=== PATIENT | female | born 1965 | race Caucasian/White ===

== ENCOUNTER 2018-06-10 07:19 | Inpatient (IN) | payer OTHER ==
--- NOTE | 2018-06-10 07:34 | PDOC ---
History of Present Illness - General History Source: Patient Exam Limitations: No Limitations, Language Barrier - History of Present Illness Initial Comments: 52 yo F w no reported pmh presents to the ER after she began experiencing epigastric abdominal pain this morning at 2 am. She states she was awoken from sleep secondary to the pain and it has worsened since it began. She rates the pain as 8/9 out of 10 and says it feels like there is a belt squeezing her upper abdomen. The pain does not radiate to the back, chest, or lower abdomen and is not associated with nausea, vomiting, diarrhea or fevers. She had a normal bowel movement yesterday. Last night she ate a rice dish for dinner. Other family members ate the same dish but are not experiencing the symptoms like her. PCP: Kai Lopez PSH: None reported Allergies: NKA, NKDA Social Hx: Denies smoking, drinks on occasion, denies other drugs. <Colt Fernandez - Last Filed: 06/10/18 10:57> <Jenna Deal - Last Filed: 06/10/18 11:01> - General Chief Complaint: Pain, Acute Stated Complaint: ABDOMINAL PAIN Time Seen by Provider: 06/10/18 07:34 Past History - Past Medical History COPD: No HTN: No Lung CA: No - Surgical History Cholecystectomy: No - Immunization History Immunization Up to Date: No - Suicide/Smoking/Psychosocial Hx Smoking History: Never smoked Have you smoked in the past 12 months: No Information on smoking cessation initiated: No Hx Alcohol Use: No Drug/Substance Use Hx: No <Colt Fernandez - Last Filed: 06/10/18 10:57> <Jenna Deal - Last Filed: 06/10/18 11:01> - Past Medical History Allergies/Adverse Reactions: Allergies Allergy/AdvReac Type Severity Reaction Status Date / Time No Known Allergies Allergy Verified 06/10/18 08:08 Home Medications: Ambulatory Orders Ibuprofen [Advil -] 400 mg PO TID PRN 06/10/18 Review of Systems - Review of Systems Able to Perform ROS?: Yes Constitutional: Yes: Loss of Appetite. No: Chills, Fever, Malaise, Weakness HEENTM: No: Blurred Vision, Nose Congestion, Throat Pain Respiratory: No: Cough, Orthopnea, Shortness of Breath Cardiac (ROS): No: Chest Pain, Edema, Irregular Heart Rate, Lightheadedness, Palpitations, Syncope, Chest Tightness ABD/GI: Yes: Nausea, Poor Appetite, Poor Fluid Intake, Indigestion, Abdominal cramping. No: Abdominal Distended, Abd. Pain w/ defecation, Blood Streaked Bowels, Constipated, Diarrhea, Difficulty Swallowing, Rectal Bleeding, Vomiting : No: Burning, Dysuria, Discharge, Frequency, Flank Pain Musculoskeletal: No: Back Pain, Joint Pain, Muscle Pain Integumentary: No: Bruising, Change in Color, Dryness, Erythema, Flushing, Lesions, Pallor, Pruritus, Rash, Sweating Neurological: No: Headache, Numbness, Paresthesia, Tingling, Tremors, Weakness, Ataxia, Dizziness Psychiatric: Yes: Sleep Pattern Change, Change in Appetite. No: Depression Endocrine: No: Excessive Sweating, Flushing, Intolerance to Cold, Intolerance to Heat, Increased Hunger, Increased Thirst Hematologic/Lymphatic: No: Anemia, Blood Clots <Colt Fernandez - Last Filed: 06/10/18 10:57> *Physical Exam - Vital Signs Last Vital Signs Temp Pulse Resp BP Pulse Ox 98.4 F 58 L 16 158/88 100 06/10/18 07:22 06/10/18 07:22 06/10/18 07:22 06/10/18 07:22 06/10/18 07:22 - Physical Exam General Appearance: Yes: Nourished, Appropriately Dressed, Apparent Distress, Moderate Distress, Obese. No: Disheveled HEENT: positive: EOMI, CHESTER, Normal ENT Inspection, Normal Voice, Pharynx Normal. negative: Pale Conjunctivae Neck: positive: Trachea midline, Supple. negative: Decreased range of motion, Lymphadenopathy (R), Lymphadenopathy (L) Respiratory/Chest: positive: Lungs Clear, Normal Breath Sounds. negative: Respiratory Distress, Accessory Muscle Use Cardiovascular: positive: Regular Rhythm, S1, S2, Bradycardia. negative: Edema , JVD, Murmur, Tachycardia, Irregularly Irregular Gastrointestinal/Abdominal: positive: Normal Bowel Sounds, Tender (in the epigastric region), Soft. negative: Distended, Guarding, Rebound, Hernia Rectal Exam: positive: deferred Lymphatic: negative: Adenopathy Musculoskeletal: positive: Normal Inspection. negative: CVA Tenderness Extremity: positive: Normal Capillary Refill, Normal Inspection, Normal Range of Motion. 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 NML intact, Fully Oriented, Alert, Normal Response, Motor Strength 5/5 <Colt Fernandez - Last Filed: 06/10/18 10:57> - Vital Signs Last Vital Signs Temp Pulse Resp BP Pulse Ox 98.4 F 58 L 16 158/88 100 06/10/18 07:22 06/10/18 07:22 06/10/18 07:22 06/10/18 07:22 06/10/18 07:22 <Jenna Deal - Last Filed: 06/10/18 11:01> ED Treatment Course - LABORATORY CBC & Chemistry Diagram: 06/10/18 08:02 06/10/18 08:02 <Colt Fernandez - Last Filed: 06/10/18 10:57> - LABORATORY CBC & Chemistry Diagram: 06/10/18 08:02 06/10/18 08:02 - ADDITIONAL ORDERS Additional order review: Laboratory Results 06/10/18 06/10/18 08:02 08:02 Sodium 140 Potassium 3.6 Chloride 106 Carbon Dioxide 24 Anion Gap 11 BUN 11 Creatinine 0.7 Creat Clearance w eGFR 88.22 Random Glucose 164 H Calcium 9.1 Total Bilirubin 0.6 AST 42 H ALT 89 H Alkaline Phosphatase 133 H Troponin I < 0.02 Total Protein 8.0 Albumin 4.1 Lipase 144 06/10/18 08:02 RBC 5.15 MCV 89.7 MCHC 34.0 RDW 14.5 MPV 9.7 Neutrophils % 82.8 Lymphocytes % 13.1 Monocytes % 2.8 L Eosinophils % 0.6 Basophils % 0.7 - RADIOLOGY Radiology Studies Ordered: Category Date Time Status CHEST X-RAY PORTABLE* [RAD] Stat Radiology 06/10/18 11:00 Ordered - Medications Given in the ED: ED Medications Discontinued Medications Generic Name Dose Route Start Last Admin Trade Name Freq PRN Reason Stop Dose Admin Acetaminophen 1,000 mg 06/10/18 07:41 06/10/18 08:30 Ofirmev Injection - IVPB 06/10/18 07:42 1,000 mg ONCE ONE Administration Al Hydroxide/Mg Hydroxide 30 ml 06/10/18 07:40 06/10/18 08:31 Mylanta Suspension - PO 06/10/18 07:41 30 ml ONCE ONE Administration Famotidine/Sodium Chloride 20 mg in 50 mls @ 100 mls/hr 06/10/18 07:39 09:29 Pepcid 20 Mg Premixed Ivpb - IVPB 06/10/18 08:08 100 mls/hr ONCE ONE Administration Sodium Chloride 1,000 mls @ 1,000 mls/hr 06/10/18 07:39 06/10/18 08:32 Normal Saline - IV 06/10/18 08:38 1,000 mls/hr ASDIR STA Administration Ceftriaxone Sodium 1,000 mg/ 50 mls @ 100 mls/hr 06/10/18 10:23 06/10/18 10: 47 Dextrose IVPB 06/10/18 10:52 100 mls/hr ONCE ONE Administration Morphine Sulfate 4 mg 06/10/18 07:58 06/10/18 08:19 Morphine Injection - IVPUSH 06/10/18 07:59 4 mg ONCE ONE Administration Morphine Sulfate 4 mg 06/10/18 08:25 06/10/18 08:38 Morphine Injection - IVPUSH 06/10/18 08:26 4 mg ONCE ONE Administration <Jenna Deal - Last Filed: 06/10/18 11:01> Medical Decision Making - Medical Decision Making 52 yo F w no reported pmh presents to the ER after she began experiencing epigastric abdominal pain this morning at 2 am. She states she was awoken from sleep secondary to the pain and it has worsened since it began. She rates the pain as 8/9 out of 10 and says it feels like there is a belt squeezing her upper abdomen. The pain does not radiate to the back, chest, or lower abdomen and is not associated with nausea, vomiting, diarrhea or fevers. She had a normal bowel movement yesterday. Last night she ate a rice dish for dinner. Other family members ate the same dish but are not experiencing the symptoms like her. VS: Sinus neel, otherwise wnl DDx IBNLT: GERD, gastritis, pancreatitis, cholecystitis, cholelithiasis, ACS/AZ , arrhythmia, electrolyte/metabolic derangement, gastroenteritis. Plan: labs, urine, ekg, GI cocktail, IV hydration, supportive care, +/- RUQ US, +/- CTAP, re-assess. EKG: Sinus Neel. POCUS: RUQ shows a large stone in the neck associated with wall thickening and a positive sono dyer sign suggestive of acute cholecystitis. CBC unremarkable. CMP shows mildly elevated liver enzymes consistent with acute siddhartha. Spoke with Dr. Balderrama - He will come see patient today and likely operate on her tomorrow. - Will admit patient hospitalist for further care. - Microblog sent at 11:00 AM <Colt Fernandez - Last Filed: 06/10/18 10:57> *DC/Admit/Observation/Transfer - Discharge Dispostion Decision to Admit order: Yes <Colt Fernandez - Last Filed: 06/10/18 10:57> - Discharge Dispostion Decision to Admit order: Yes <Jenna Deal - Last Filed: 06/10/18 11:01> Diagnosis at time of Disposition: Cholecystitis - Discharge Dispostion Condition at time of disposition: Stable - Referrals Referrals: Kai Lopez MD [Primary Care Provider] -
[2018-06-10] MEDS ORDERED: SODIUM CHLORIDE 1,000 ML IV STA (07:39)
[2018-06-10] MEDS ORDERED: FAMOTIDINE 20 MG/50 ML IVPB 20 MG/50 ML MG IVPB ONE ×2 (07:39→09:16)
[2018-06-10] MEDS ORDERED: MAG HYDROX/AL HYDROX/SIMETH -MYLANTA- ORAL SUSPENSION PO ONE (07:40)
[2018-06-10] MEDS ORDERED: ACETAMINOPHEN 1000 MG/100 ML VIAL (NON FORMULARY) IVPB ONE (07:41)
[2018-06-10] MEDS ORDERED: morphine SULFATE 4 MG/ML VIAL ONE ×2 (07:56→08:34)
[2018-06-10] MEDS ORDERED: morphine CARPU-JECT 4 MG/1 ML DISP.SYRIN IVPUSH ONE ×2 (07:58→08:25)
--- NOTE | 2018-06-10 08:10 | PDOC ---
Attending Attestation - Resident Resident Name: Colt Fernandez - ED Attending Attestation I have performed the following: I have examined & evaluated the patient, The case was reviewed & discussed with the resident, I agree w/resident's findings & plan - HPI HPI: 06/10/18 08:00 52 YOF with no medical history presenting with acute onset of epigastric/ periumbilical AP, nausea, radiating to the back since 2AM. Last meal including rice and chicken for dinner. No v/d, f/c. +recent return from [place] earlier this week, was there x 2 week vacation. No other sick contacts. No drugs or alcohol use. 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 - Physicial Exam PE: 06/10/18 08:00 in mild distress 2/2 pain, PERRL, EOMI, MMM, nl conjunctiva, anicteric; neck supple. lungs clear, RRR, abdomen soft nnondistended, +Rosales's sign, + epigastric TTP, no rebound or guarding. No CVAT. CONTI x4. No peripheral edema. normal color for ethnicity, WWP. - Medical Decision Making 06/10/18 08:03 See HPI for details Vital signs reviewed, wnl. DDx abdominal pain: Renal colic, biliary colic, cholecystitis, metabolic/ electrolyte derangements. GERD, PUD, esophageal spasm, pancreatitis, hepatitis, constipation, colitis, gastroenteritis,, UTI, pyelonephritis, ileus, medication side effect, hernia, No lower quad tenderness to suggest pelvic pathology, appy or diverticulitis. Prior notes reviewed, including admissions, discharges and consultations. laboratory results and imaging reviewed, basic labs and lytes wnl, notable for normal wbc ct, however nonspecific and there is moderate suspicion for acute siddhartha. LFTs/lipase normal, mild elevation in LFTs. UA_neg CXR neg for acute pathology Cardiac panel_neg trop EKG normal sinus rhythm at 59 bpm, no interval abnormalities, narrow QRS, ST and T wave segments and morphology normal. ED course Bedside limited sono with +large gallstone at GB neck noted, normal CBD and no pericholecystic fluid/+GB wall edema>3mm. +sono rosales. analgesia, IVF, GI cocktail, reassess, official RUQ sono: multiple calculi throughout GB, borderline GB edema, correlate for acute siddhartha. IV abx with ceftriaxone/flagyl for acute siddhartha, cover for GP/GN and anaerobes. surg cs with Dr Balderrama on clinical reeval: sx improved, findings suspicious for acute siddhartha admit for surgical/medical management, NPO, fluids and analgesia/abx. 06/10/18 10:20 06/10/18 10:23 06/12/18 13:27 06/12/18 13:28 Heart Score/ECG Review #1 ECG reviewed & interpreted by me at: 07:40 General ECG Interpretation: Sinus Rhythm, Normal Rate, Normal Intervals, No acute ischemic changes 06/10/18 11:03 EKG normal sinus rhythm at 59 bpm, no interval abnormalities, narrow QRS, ST and T wave segments and morphology normal.
[2018-06-10 08:15] LABS: BASO % 0.7 % (0-2.0); EOS % 0.6 % (0-4.5); HEMATOCRIT 46.2 % (32.4-45.2); HEMOGLOBIN 15.7 GM/dL (10.7-15.3); LYMPH % 13.1 % (8-40); MCH 30.5 pg (25.7-33.7); MEAN CELL VOLUME 89.7 fl (80-96); MEAN PLT VOLUME 9.7 fl (7.5-11.1); MONO % 2.8 % (3.8-10.2); NEUT % 82.8 % (42.8-82.8); PLATELET COUNT 237 K/MM3 (134-434); RBC 5.15 M/mm3 (3.60-5.2); RDW 14.5 % (11.6-15.6); WHITE BLOOD COUNT 9.3 K/mm3 (4.0-10.0)
[2018-06-10] MEDS ORDERED: ACETAMINOPHEN INJECTION 100 ML IVPB ONE (08:22)
[2018-06-10] MEDS ORDERED: MAG HYDROX/AL HYDROX/SIMETH 30 ML UNIT-DOSE CUP ONE (08:22)
[2018-06-10 08:38] LABS: ALBUMIN 4.1 g/dl (3.4-5.0); ALK PHOS 133 U/L (45-117); ANION GAP 11 MMOL/L (8-16); BILIRUBIN,TOTAL 0.6 mg/dL (0.2-1); BLOOD UREA NITROGEN 11 mg/dL (7-18); CALCIUM 9.1 mg/dL (8.5-10.1); CHLORIDE 106 mmol/L (98-107); CO2 24 mmol/L (21-32); CREATININE 0.7 mg/dL (0.55-1.3); GLUCOSE,RANDOM 164 mg/dL (74-106); LIPASE 144 U/L (73-393); POTASSIUM 3.6 mmol/L (3.5-5.1); SGOT/AST 42 U/L (15-37); SGPT/ALT 89 U/L (13-61); SODIUM 140 mmol/L (136-145)
[2018-06-10] MEDS ORDERED: CEFTRIAXONE 1,000 MG in DEXTROSE 5%-WATER - 50 ML IVPB ONE (10:23)
[2018-06-10] MEDS ORDERED: CEFTRIAXONE 1 GM/50 ML BAG ONE (10:39)
[2018-06-10] MEDS: SODIUM CHLORIDE 1,000 ML IV SCH (11:04)
[2018-06-10] MEDS ORDERED: ACETAMINOPHEN 325 MG TABLET (FP) PO PRN (11:09)
[2018-06-10] MEDS ORDERED: ONDANSETRON 4 MG/2 ML VIAL IVPUSH PRN (11:11)
--- NOTE | 2018-06-10 11:16 | CONSULT ---
- Consultation REQUESTING PROVIDER: Jim CONSULT REQUEST: We have been asked to surgically evaluate this patient for ( specify). PCP:Miguel Henderson MD HISTORY OF PRESENT ILLNESS: PMHx: PSHx: Home Medications Medication Instructions Recorded Ibuprofen [Advil -] 400 mg PO TID PRN 06/10/18 Allergies Allergy/AdvReac Type Severity Reaction Status Date / Time No Known Allergies Allergy Verified 06/10/18 08:08 REVIEW OF SYSTEMS: CONSTITUTIONAL: Absent: fever, chills, diaphoresis, generalized weakness, malaise, loss of appetite, weight change CARDIOVASCULAR: Absent: chest pain, syncope, palpitations, irregular heart rate, lightheadedness , peripheral edema RESPIRATORY: Absent: cough, shortness of breath, dyspnea with exertion, wheezing, stridor, hemoptysis GASTROINTESTINAL: Absent: abdominal pain, abdominal distension, nausea, vomiting, diarrhea, constipation, melena, hematochezia GENITOURINARY: Absent: dysuria, frequency, urgency, hesitancy, hematuria, flank pain, genital pain MUSCULOSKELETAL: Absent: myalgia, arthralgia, joint swelling, back pain, neck pain SKIN: Absent: rash, itching, pallor HEMATOLOGIC/IMMUNOLOGIC: Absent: easy bleeding, easy bruising, lymphadenopathy NEUROLOGIC: Absent: headache, focal weakness, paresthesias, dizziness, unsteady gait, seizure, mental status changes, bladder or bowel incontinence PSYCHIATRIC: Absent: anxiety, depression, suicidal or homicidal ideation, hallucinations. PHYSICAL EXAM: GENERAL: Awake, alert, and fully oriented, in no acute distress. HEAD: Normal with no signs of trauma. EYES: PERRL, sclera anicteric, conjunctiva clear. NECK: Normal ROM, supple without lymphadenopathy, JVD, or masses. LUNGS: Clear to auscultation bilat anteriorly. No wheezes, and no crackles. No accessory muscle use. HEART: Regular rate and rhythm. No murmurs ABDOMEN: Soft, nontender, not distended, normoactive bowel sounds, no guarding, no rebound, no masses. No organomegaly. MUSCULOSKELETAL: Normal ROM at all joints. No bony deformities or tenderness. No CVA tenderness. UPPER EXTREMITIES: 2+ pulses, warm, well-perfused. No cyanosis. Cap refill <2 seconds. No peripheral edema. LOWER EXTREMITIES: 2+ pulses, warm, well-perfused. No calf tenderness. No peripheral edema. NEUROLOGICAL: Normal speech, gait not observed. PSYCH: Cooperative. Good eye contact. Appropriate mood and affect. SKIN: Warm, dry, normal turgor, no rashes or lesions noted. Vital Signs Temperature 98.4 F 06/10/18 07:22 Pulse Rate 58 L 06/10/18 07:22 Respiratory Rate 16 06/10/18 07:22 Blood Pressure 158/88 06/10/18 07:22 O2 Sat by Pulse Oximetry (%) 100 06/10/18 07:22 Lab Results WBC 9.3 K/mm3 (4.0-10.0) 06/10/18 08:02 RBC 5.15 M/mm3 (3.60-5.2) 06/10/18 08:02 Hgb 15.7 GM/dL (10.7-15.3) H 06/10/18 08:02 Hct 46.2 % (32.4-45.2) H 06/10/18 08:02 MCV 89.7 fl (80-96) 06/10/18 08:02 MCHC 34.0 g/dl (32.0-36.0) 06/10/18 08:02 RDW 14.5 % (11.6-15.6) 06/10/18 08:02 Plt Count 237 K/MM3 (134-434) 06/10/18 08:02 Sodium 140 mmol/L (136-145) 06/10/18 08:02 Potassium 3.6 mmol/L (3.5-5.1) 06/10/18 08:02 Chloride 106 mmol/L (98-107) 06/10/18 08:02 Carbon Dioxide 24 mmol/L (21-32) 06/10/18 08:02 Anion Gap 11 MMOL/L (8-16) 06/10/18 08:02 BUN 11 mg/dL (7-18) 06/10/18 08:02 Creatinine 0.7 mg/dL (0.55-1.3) 06/10/18 08:02 Random Glucose 164 mg/dL (74-106) H 06/10/18 08:02 Calcium 9.1 mg/dL (8.5-10.1) 06/10/18 08:02 IMP: acute cholecystitis PLAN: Admit/NPO/IVF/IVABS/lap siddhartha possible open 06/11/18.
--- NOTE | 2018-06-10 11:16 | HP ---
CHIEF COMPLAINT: abdominal pain PCP: not on staff HISTORY OF PRESENT ILLNESS: This is a 52 year old female with no known past medical history who presents with RUQ abdominal pain that woke her up from sleep. Patient is sharp, 10/10, radiated to right back with accompanied nausea. Afebrile, no chills, no vomiting. NO travel, no sick contacts. ER course was notable for:US +GB wall thickening Recent Travel: no PAST MEDICAL HISTORY: no PAST SURGICAL HISTORY: no Social History: Smoking:no Alcohol:no Drugs: no Family History: Allergies No Known Allergies Allergy (Verified 06/10/18 08:08) HOME MEDICATIONS: Home Medications Medication Instructions Recorded Ibuprofen [Advil -] 400 mg PO TID PRN 06/10/18 REVIEW OF SYSTEMS CONSTITUTIONAL: Absent: fever, chills, diaphoresis, generalized weakness, malaise, loss of appetite, weight change HEENT: Absent: rhinorrhea, nasal congestion, throat pain, throat swelling, difficulty swallowing, mouth swelling, ear pain, eye pain, visual changes CARDIOVASCULAR: Absent: chest pain, syncope, palpitations, irregular heart rate, lightheadedness , peripheral edema RESPIRATORY: Absent: cough, shortness of breath, dyspnea with exertion, orthopnea, wheezing, stridor, hemoptysis GASTROINTESTINAL: Absent: abdominal pain, abdominal distension, nausea, vomiting, diarrhea, constipation, melena, hematochezia GENITOURINARY: Absent: dysuria, frequency, urgency, hesitancy, hematuria, flank pain, genital pain MUSCULOSKELETAL: Absent: myalgia, arthralgia, joint swelling, back pain, neck pain SKIN: Absent: rash, itching, pallor HEMATOLOGIC/IMMUNOLOGIC: Absent: easy bleeding, easy bruising, lymphadenopathy, frequent infections ENDOCRINE: Absent: unexplained weight gain, unexplained weight loss, heat intolerance, cold intolerance NEUROLOGIC: Absent: headache, focal weakness or paresthesias, dizziness, unsteady gait, seizure, mental status changes, bladder or bowel incontinence PSYCHIATRIC: Absent: anxiety, depression, suicidal or homicidal ideation, hallucinations. PHYSICAL EXAMINATION Vital Signs - 24 hr 06/10/18 07:22 Temperature 98.4 F Pulse Rate 58 L Respiratory 16 Rate Blood Pressure 158/88 O2 Sat by Pulse 100 Oximetry (%) GENERAL: Awake, alert, and fully oriented, in no acute distress. LUNGS: Breath sounds equal, clear to auscultation bilaterally. No wheezes, and no crackles. No accessory muscle use. HEART: Regular rate and rhythm, normal S1 and S2 without murmur, rub or gallop. ABDOMEN: very tender; RUQ pain; Rosales+ MUSCULOSKELETAL: Normal range of motion at all joints. No bony deformities or tenderness. No CVA tenderness. UPPER EXTREMITIES: 2+ pulses, warm, well-perfused. No cyanosis. No clubbing. No peripheral edema. LOWER EXTREMITIES: 2+ pulses, warm, well-perfused. No calf tenderness. No peripheral edema. NEUROLOGICAL: Cranial nerves II-XII intact. Normal speech. Normal gait. PSYCHIATRIC: Cooperative. Good eye contact. Appropriate mood and affect. SKIN: Warm, dry, normal turgor, no rashes or lesions noted, normal capillary refill. Laboratory Results - last 24 hr 06/10/18 06/10/18 06/10/18 08:02 08:02 08:02 WBC 9.3 RBC 5.15 Hgb 15.7 H Hct 46.2 H MCV 89.7 MCH 30.5 MCHC 34.0 RDW 14.5 Plt Count 237 MPV 9.7 Absolute Neuts (auto) 7.7 Neutrophils % 82.8 Lymphocytes % 13.1 Monocytes % 2.8 L Eosinophils % 0.6 Basophils % 0.7 Nucleated RBC % 0 Sodium 140 Potassium 3.6 Chloride 106 Carbon Dioxide 24 Anion Gap 11 BUN 11 Creatinine 0.7 Creat Clearance w eGFR 88.22 Random Glucose 164 H Calcium 9.1 Total Bilirubin 0.6 AST 42 H ALT 89 H Alkaline Phosphatase 133 H Troponin I < 0.02 Total Protein 8.0 Albumin 4.1 Lipase 144 ASSESSMENT/PLAN: This is a 52 year old female with no known medical history, who presents with abdominal pain, found to have acute cholecystitis. #acute choleycystitis -NPO after midnight -surgery in the am -IVF -empiric antibiotics -pain control VTE: scds GI: protonix Disposition: medsur Visit type - Emergency Visit Emergency Visit: Yes ED Registration Date: 06/10/18 Care time: The patient presented to the Emergency Department on the above date and was hospitalized for further evaluation of their emergent condition. - New Patient This patient is new to me today: No - Critical Care Critical Care patient: No
[2018-06-10 11:24] LABS: URINE APPEARANCE CLEAR; URINE BILIRUBIN NEGATIVE (NEGATIVE); URINE COLOR YELLOW; URINE GLUCOSE (UA) NEGATIVE (NEGATIVE); URINE KETONE NEGATIVE (NEGATIVE); URINE LEUK ESTERASE NEGATIVE (NEGATIVE); URINE NITRITE NEGATIVE (NEGATIVE); URINE PROTEIN NEGATIVE (NEGATIVE); URINE UROBILINOGEN 0.2 mg/dL (0.2-1.0)
--- NOTE | 2018-06-10 11:59 | PN ---
Teaching Attending Note Name of Resident: Adeline Mehta ATTENDING PHYSICIAN STATEMENT I saw and evaluated the patient. I reviewed the resident's note and discussed the case with the resident. I agree with the resident's findings and plan as documented. CC: my stomach hurts HPI: Mrs Mcdowell is a pleasant 52 year old female who comes in with abdominal pain. She was in her normal state of health, but at approximately 2am she developed sudden onset RUQ abdominal pain. It was sharp, constant, 10/10, non- radiating. She had nausea but no vomiting. Aside from this she is without complaint. She denies fevers, chills, lightheadedness, dizziness, passing out, chest pain or pressure, shortness of breath, diarrhea, constipation, difficulty or pain on urination, or swelling. 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 ROS: full review of systems obtained, as per HPI and otherwise negative OBJECTIVE: Last Vital Signs Temp Pulse Resp BP Pulse Ox 36.9 C 58 L 16 158/88 100 06/10/18 07:22 06/10/18 07:22 06/10/18 07:22 06/10/18 07:22 06/10/18 07:22 Gen: nad, obese HEENT: perrla, eomi, mmm Pulm: ctab w/o w/r/r CV: rrr w/o m/r/g Abd: +bs, s/nd, RUQ tenderness with positive Rosales's sign Ext: no c/c/e CBC, BMP 06/10/18 08:02 06/10/18 08:02 ASSESSMENT AND PLAN: Problem List - Problems (1) Cholecystitis Assessment/Plan: -general surgery consulted -rocephin and flagyl -clear liquid diet tonight, npo after midnight -IVF -pain control with morphine -plan for surgery in am Code(s): K81.9 - CHOLECYSTITIS, UNSPECIFIED
[2018-06-10] MEDS ORDERED: MORPHINE SULFATE 2 MG/ML VIAL ONE (12:19)
[2018-06-10] MEDS: MORPHINE SULFATE 2 MG/ML VIAL IVPUSH PRN ×3 (12:20→20:01)
--- NOTE | 2018-06-10 14:14 | EKG ---
Test Reason : Blood Pressure : / mmHG Vent. Rate : 059 BPM Atrial Rate : 059 BPM P-R Int : 144 ms QRS Dur : 082 ms QT Int : 464 ms P-R-T Axes : 055 018 063 degrees QTc Int : 459 ms SINUS BRADYCARDIA OTHERWISE NORMAL ECG WHEN COMPARED WITH ECG OF 09-OCT-1998 18:50, PREMATURE ECTOPIC COMPLEXES ARE NO LONGER PRESENT AL INTERVAL HAS INCREASED Confirmed by KEARA DEL CID, CINTHIA ([id number]) on 06/10/2018 2:14:01 PM Referred By: Confirmed By:CINTHIA SARAH MD
[2018-06-10 17:09] VITALS: BMI 27.8
[2018-06-11] MEDS: MORPHINE SULFATE 2 MG/ML VIAL IVPUSH PRN (00:02)
[2018-06-11] MEDS: SODIUM CHLORIDE 1,000 ML IV SCH (00:02)
[2018-06-11 08:19] LABS: BASO % 0.3 % (0-2.0); EOS % 0.6 % (0-4.5); HEMOGLOBIN 14.5 GM/dL (10.7-15.3); LYMPH % 8.7 % (8-40); MCH 30.6 pg (25.7-33.7); MCHC 33.6 g/dl (32.0-36.0); MEAN CELL VOLUME 90.9 fl (80-96); MEAN PLT VOLUME 9.6 fl (7.5-11.1); MONO % 7.7 % (3.8-10.2); NEUT % 82.7 % (42.8-82.8); PLATELET COUNT 218 K/MM3 (134-434); RBC 4.73 M/mm3 (3.60-5.2); RDW 14.4 % (11.6-15.6); WHITE BLOOD COUNT 15.5 K/mm3 (4.0-10.0)
[2018-06-11 08:36] LABS: INR 1.08 (0.83-1.09); PROTHROMBIN TIME (PATIENT) 12.8 SEC (9.7-13.0)
[2018-06-11 09:03] LABS: ALBUMIN 3.4 g/dl (3.4-5.0); ALK PHOS 94 U/L (45-117); ANION GAP 9 MMOL/L (8-16); BILIRUBIN,TOTAL 1.3 mg/dL (0.2-1); BLOOD UREA NITROGEN 5 mg/dL (7-18); CALCIUM 8.3 mg/dL (8.5-10.1); CHLORIDE 106 mmol/L (98-107); CO2 25 mmol/L (21-32); CREATININE 0.5 mg/dL (0.55-1.3); GLUCOSE,RANDOM 134 mg/dL (74-106); MAGNESIUM 2.6 mg/dL (1.8-2.4); PHOSPHOROUS 2.6 mg/dL (2.5-4.9); SGOT/AST 22 U/L (15-37); SGPT/ALT 62 U/L (13-61); SODIUM 140 mmol/L (136-145); TOT PROT 6.9 g/dl (6.4-8.2)
[2018-06-11] MEDS ORDERED: cefTRIAXone SODIUM 1 GM VIAL ONE (09:05)
[2018-06-11] MEDS ORDERED: DEXTROSE 5%-WATER - 50 ML IVPB ONE (09:05)
[2018-06-11] MEDS ORDERED: LIDOCAINE HCL/PF 2% SDV 5ML VIAL ONE (09:27)
[2018-06-11] MEDS ORDERED: ROCURONIUM BROMIDE 50 MG/5 ML VIAL ONE (09:28)
[2018-06-11] MEDS ORDERED: MIDAZOLAM HCL 2 MG/2 ML SINGLE DOSE VIAL ONE (09:28)
[2018-06-11] MEDS ORDERED: PROPOFOL 20 ML ONE ×2 (09:28→11:38)
[2018-06-11] MEDS ORDERED: IBUPROFEN 800 MG/8 ML IJ IVPB PRN ×2 (09:45→14:56)
[2018-06-11] MEDS ORDERED: CEFTRIAXONE 1 GM/50 ML PREMIX IVPB ONE (09:50)
[2018-06-11] MEDS ORDERED: CEFTRIAXONE 1 GM in DEXTROSE 5%-WATER - 50 ML IVPB SCH (10:00)
[2018-06-11] MEDS ORDERED: PANTOPRAZOLE SODIUM 40 MG VIAL IVPUSH SCH (10:00)
[2018-06-11] MEDS ORDERED: GLYCOPYRROLATE 0.2 MG/1 ML VIAL ONE (10:45)
[2018-06-11] MEDS ORDERED: DEXAMETHASONE SOD PHOSPHATE 4 MG/1 ML VIAL ONE (10:45)
[2018-06-11] MEDS ORDERED: NEOSTIGMINE METHYLSULFATE 0.5 MG/ML - 10 ML MDV ONE (10:45)
[2018-06-11] MEDS ORDERED: BUPIVACAINE HCL/PF (5 MG/ML) 30 ML VIAL IJ ONE (11:54)
--- NOTE | 2018-06-11 12:21 | OP ---
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
--- NOTE | 2018-06-11 12:44 | SURG ---
Surgery Associate Director Of Nursing Note Associate Director Of Nursing: Colt Gutiérrez PA-C Date of Service: 06/11/18 Diagnosis: Acute cholecystitis Procedure: Lap cholecystectomy I was present for the entirety of the operative procedure. For further detail, please refer to operative report. Visit type - Case Type Case Type: ED Admission - Emergency Emergency Visit: Yes ED Registration Date: 06/10/18 Care time: The patient presented to the Emergency Department on the above date and was hospitalized for further evaluation of their emergent condition. - New patient This patient is new to me today: Yes Date on this admission: 06/11/18
[2018-06-11] MEDS ORDERED: IBUPROFEN 800 MG/8 ML IJ IVPB ONE ×2 (14:06→14:12)
[2018-06-11] MEDS ORDERED: ACETAMINOPHEN 325 MG TABLET (FP) PO PRN (14:56)
[2018-06-11] MEDS ORDERED: MORPHINE SULFATE 2 MG/ML VIAL IVPUSH PRN (14:56)
[2018-06-11] MEDS ORDERED: ONDANSETRON 4 MG/2 ML VIAL IVPUSH PRN (14:56)
--- NOTE | 2018-06-11 18:23 | PN ---
Physical Exam: SUBJECTIVE: Patient seen and examined OBJECTIVE: Vital Signs Period Temp Pulse Resp BP Sys/Mclaughlin Pulse Ox Last 24 Hr 98.4 F-99.3 F 64-92 16-22 119-161/76-98 99-100 GENERAL: The patient is awake, alert, and fully oriented, in no acute distress. HEAD: Normal with no signs of trauma. LUNGS: Breath sounds equal, clear to auscultation bilaterally, no wheezes, no crackles, no accessory muscle use. HEART: Regular rate and rhythm, S1, S2 without murmur, rub or gallop. ABDOMEN: dressing c/d/i EXTREMITIES: 2+ pulses, warm, well-perfused, no edema. NEUROLOGICAL: Cranial nerves II through XII grossly intact. Normal speech, gait not observed. PSYCH: Normal mood, normal affect. SKIN: Warm, dry, normal turgor, no rashes or lesions noted Laboratory Results - last 24 hr 06/11/18 06/11/18 06/11/18 08:00 08:00 08:00 WBC 15.5 H RBC 4.73 Hgb 14.5 Hct 43.0 MCV 90.9 MCH 30.6 MCHC 33.6 RDW 14.4 Plt Count 218 MPV 9.6 Absolute Neuts (auto) 12.8 H Neutrophils % 82.7 Lymphocytes % 8.7 D Monocytes % 7.7 D Eosinophils % 0.6 Basophils % 0.3 Nucleated RBC % 0 PT with INR 12.80 INR 1.08 Sodium 140 Potassium 4.0 Chloride 106 Carbon Dioxide 25 Anion Gap 9 BUN 5 L Creatinine 0.5 L Creat Clearance w eGFR 130.08 Random Glucose 134 H Calcium 8.3 L Phosphorus 2.6 Magnesium 2.6 H Total Bilirubin 1.3 H AST 22 ALT 62 H Alkaline Phosphatase 94 Total Protein 6.9 Albumin 3.4 Active Medications Generic Name Dose Route Start Last Admin Trade Name Freq PRN Reason Stop Dose Admin Acetaminophen 650 mg 06/11/18 14:56 Tylenol - PO Q4H PRN MILD PAIN Sodium Chloride 1,000 mls @ 100 mls/hr 06/11/18 14:56 Normal Saline - IV ASDIR JACQUELINE Ibuprofen 800 mg 06/11/18 14:56 Caldolor Injection - IVPB Q6H PRN FEVER Morphine Sulfate 2 mg 06/11/18 14:56 Morphine Sulfate IVPUSH Q4H PRN PAIN LEVEL 6-10 Ondansetron HCl 4 mg 06/11/18 14:56 Zofran Injection IVPUSH Q6H PRN NAUSEA Pantoprazole Sodium 40 mg 06/12/18 10:00 Protonix Iv IVPUSH DAILY [facility] ASSESSMENT/PLAN: This is a 52 year old female with no known medical history, who presents with abdominal pain, found to have acute cholecystitis. #acute choleycystitis s/p laproscopic cholecystectomy -findings : gangrenous cholelcystitis/cholelithiasis/Mirizzi's syndrome -cont antibiotics -monitor wbc Diet ad per surgery VTE: scds GI: protonix Disposition: medsur Visit type - Emergency Visit Emergency Visit: Yes ED Registration Date: 06/10/18 Care time: The patient presented to the Emergency Department on the above date and was hospitalized for further evaluation of their emergent condition. - New Patient This patient is new to me today: Yes Date on this admission: 06/11/18 - Critical Care Critical Care patient: No
--- NOTE | 2018-06-11 18:27 | PN ---
Teaching Attending Note Name of Resident: Adeline Mehta ATTENDING PHYSICIAN STATEMENT I saw and evaluated the patient. I reviewed the resident's note and discussed the case with the resident. I agree with the resident's findings and plan as documented. SUBJECTIVE: patient seen prior to surgery. Still with abdominal pain but controlled. No cp, sob, n/v. OBJECTIVE: Last Vital Signs Temp Pulse Resp BP Pulse Ox 36.9 C 88 18 152/95 99 06/11/18 14:30 06/11/18 14:30 06/11/18 14:30 06/11/18 14:30 06/11/18 14:15 Gen: nad, obese Pulm: ctab w/o w/r/r CV: rrr w/o m/r/g Abd: +bs, s/nd, TTP in RUQ Ext: no c/c/e CBC, BMP 06/11/18 08:00 06/11/18 08:00 ASSESSMENT AND PLAN: (1) Cholecystitis Assessment/Plan: -case d/w Dr Balderrama after surgery -found to be gangrenous -gallbladder removed -drain in place -antibiotics stopped and will monitor off -monitor leukocytosis -pain control -clear liquid diet Code(s): K81.9 - CHOLECYSTITIS, UNSPECIFIED Problem List - Problems (1) Acute gangrenous cholecystitis Code(s): K81.0 - ACUTE CHOLECYSTITIS
[2018-06-12] MEDS: SODIUM CHLORIDE 1,000 ML IV SCH ×2 (06:47→14:10)
[2018-06-12 07:26] LABS: BASO % 0.1 % (0-2.0); EOS % 0.1 % (0-4.5); HEMATOCRIT 39.9 % (32.4-45.2); HEMOGLOBIN 13.4 GM/dL (10.7-15.3); LYMPH % 7.6 % (8-40); MCH 30.4 pg (25.7-33.7); MCHC 33.5 g/dl (32.0-36.0); MEAN CELL VOLUME 90.8 fl (80-96); MEAN PLT VOLUME 9.9 fl (7.5-11.1); MONO % 5.7 % (3.8-10.2); NEUT % 86.5 % (42.8-82.8); PLATELET COUNT 214 K/MM3 (134-434); RBC 4.39 M/mm3 (3.60-5.2); RDW 14.3 % (11.6-15.6); WHITE BLOOD COUNT 16.8 K/mm3 (4.0-10.0)
[2018-06-12 07:36] LABS: ALK PHOS 78 U/L (45-117); ANION GAP 5 MMOL/L (8-16); BILIRUBIN,DIRECT 0.2 mg/dL (0.0-0.2); BILIRUBIN,TOTAL 0.6 mg/dL (0.2-1); BLOOD UREA NITROGEN 8 mg/dL (7-18); CHLORIDE 111 mmol/L (98-107); CO2 23 mmol/L (21-32); CREATININE 0.5 mg/dL (0.55-1.3); GLUCOSE,RANDOM 110 mg/dL (74-106); MAGNESIUM 2.6 mg/dL (1.8-2.4); PHOSPHOROUS 2.3 mg/dL (2.5-4.9); POTASSIUM 3.7 mmol/L (3.5-5.1); SGOT/AST 37 U/L (15-37); SGPT/ALT 68 U/L (13-61); SODIUM 140 mmol/L (136-145); TOT PROT 6.1 g/dl (6.4-8.2)
[2018-06-12] MEDS: PANTOPRAZOLE SODIUM 40 MG VIAL IVPUSH SCH (10:10)
--- NOTE | 2018-06-12 11:13 | PN ---
Progress Note (short form) - Note Progress Note: Attending Surgeon POD #1 No c/o; voided and tolerated clear liquids VSS AF abdo-soft; port site dressings c/d/i; ZACH serosanguinous labs noted IMP: stable post op PLAN: Advance diet; OOB; continue ZACH drain; f/u WBC tomorrow. Camilo Huizar> [place] C[facility] FACS
--- NOTE | 2018-06-12 11:16 | PN ---
Progress Note (short form) - Note Progress Note: Anesthesiology Post-op 52 y.o. woman POD#1 s/p laparocopic cholecystectomy under [facility]. No ON or anesthesia-related issues. Pt. has some pain but it is managed with medications. VSS. Stable post-operative course. Continue care as per primary team.
--- NOTE | 2018-06-12 11:22 | PN ---
Progress Note, Physician Chief Complaint: Ms Mcdowell says she is having some pain with coughing but otherwise without complaint. No cp, sob, n/v. - Current Medication List Current Medications: Active Medications Acetaminophen (Tylenol -) 650 mg PO Q4H PRN PRN Reason: MILD PAIN Sodium Chloride (Normal Saline -) 1,000 mls @ 100 mls/hr IV ASDIR [facility] Last Admin: 06/12/18 06:47 Dose: 100 mls/hr Ibuprofen (Caldolor Injection -) 800 mg IVPB Q6H PRN PRN Reason: FEVER Morphine Sulfate (Morphine Sulfate) 2 mg IVPUSH Q4H PRN PRN Reason: PAIN LEVEL 6-10 Ondansetron HCl (Zofran Injection) 4 mg IVPUSH Q6H PRN PRN Reason: NAUSEA Pantoprazole Sodium (Protonix Iv) 40 mg IVPUSH DAILY [facility] Last Admin: 06/12/18 10:10 Dose: 40 mg - Objective Vital Signs: Vital Signs Temperature 36.8 C 06/12/18 09:54 Pulse Rate 66 06/12/18 09:54 Respiratory Rate 18 06/12/18 09:54 Blood Pressure 141/85 06/12/18 09:54 O2 Sat by Pulse Oximetry (%) 97 06/11/18 21:00 Constitutional: Yes: Well Nourished, No Distress, Calm Cardiovascular: Yes: Regular Rate and Rhythm. No: Gallop, Murmur, Rub Respiratory: Yes: Regular, CTA Bilaterally. No: Rales, Rhonchi, Wheezes Gastrointestinal: Yes: Normal Bowel Sounds, Soft, Tenderness (slight), Other ( ZACH drain in place). No: Distention Extremities: Yes: WNL Edema: No Labs: CBC, BMP 06/12/18 06:30 06/12/18 06:30 INR, PTT INR 1.08 (0.83-1.09) 06/11/18 08:00 Problem List - Problems (1) Acute gangrenous cholecystitis Code(s): K81.0 - ACUTE CHOLECYSTITIS Assessment/Plan (1) Cholecystitis Assessment/Plan: -improving clinically -surgery note reviewed -advance diet -recheck cbc tomorrow -if WBCs improving, plan for discharge Code(s): K81.9 - CHOLECYSTITIS, UNSPECIFIED
--- NOTE | 2018-06-12 11:48 | OP ---
DATE OF OPERATION: 06/11/2018 PREOPERATIVE DIAGNOSES: Acute cholecystitis and cholelithiasis. POSTOPERATIVE DIAGNOSES: Gangrenous cholecystitis, cholelithiasis, and Mirizzi syndrome. OPERATION: Laparoscopic cholecystectomy. SURGEON: Camilo Balderrama MD MEDICAL RECORDS SECRETARY: Colt Gutiérrez PA-C ANESTHESIA: General. OPERATIVE FINDINGS: There was a focally gangrenous cholecystitis and cholelithiasis and evidence of a Mirizzi syndrome. The rest of the findings were unremarkable. PROCEDURE: The patient was placed on the operating table in the supine position and after the induction of general anesthesia the patient's abdomen was prepped with ChloraPrep and draped in sterile fashion. A timeout was taken and pneumoperitoneum established above the umbilicus using a Veress needle. Once 15 mmHg of pressure were obtained, a 5-mm port was placed at the umbilicus and additional lateral 5-mm ports and a subxiphoid 12-mm port. Laparoscopy was carried out and the previously noted findings were observed. Dissection was begun at the neck of the gallbladder where the peritoneum was opened medially and laterally using blunt dissection and electrocautery. The cystic duct was identified coursing from the neck of the gallbladder towards the common bile duct and it was dissected using blunt dissection proximally and distally for length. Similarly, the artery was identified and dissected proximally and distally for length. A critical view of safety was taken and then the duct and the artery were clipped twice proximally and twice distally with large hemoclips. The duct and artery were then serially divided using Endoshears. Hemostasis was checked for and noted to be good and then the gallbladder was removed from the liver bed in a retrograde fashion using electrocautery. Prior to removal from the edge of the liver, hemostasis in the liver bed was again checked for and noted to be good and then the gallbladder removed from the edge of the liver, placed in an EndoCatch , and brought out through the subxiphoid port. Pneumoperitoneum was reestablished. Copious irrigation was carried out with saline. Hemostasis was verified again. A 10-mm Epi-Stein drain was placed in the right hepatorenal fossa and brought out through 1 of the 5-mm ports and secured to the skin with 2-0 silk suture. All port sites were removed under laparoscopic vision without evidence of bleeding from the port sites. The port sites were infiltrated with 0.5% Marcaine and the skin edges reapproximated with 4-0 Biosyn in a subcuticular continuous fashion. Steri-Strips and Band-Aid dressings were placed. The drain was connected to bulb suction and then the patient aroused from general anesthesia and transferred to the postanesthesia care unit in stable condition, awake and alert. ESTIMATED BLOOD LOSS: 50 mL. REPLACEMENT: Crystalloid. DRAINS: One 10-mm Epi-Stein in the gallbladder fossa. SPECIMEN: Gallbladder and contents to Pathology. I, Camilo Balderrama, was physically present in the operating room from the time the patient was placed on the operating table until she was transferred to the postanesthesia care unit in my accompaniment. MD GRACE Nova/[id number] MTDD
[2018-06-13] MEDS: SODIUM CHLORIDE 1,000 ML IV SCH (01:21)
[2018-06-13 07:21] LABS: BASO % 0.6 % (0-2.0); EOS % 2.2 % (0-4.5); HEMATOCRIT 39.2 % (32.4-45.2); HEMOGLOBIN 13.1 GM/dL (10.7-15.3); LYMPH % 21.2 % (8-40); MCH 30.1 pg (25.7-33.7); MCHC 33.3 g/dl (32.0-36.0); MEAN CELL VOLUME 90.3 fl (80-96); MEAN PLT VOLUME 10.1 fl (7.5-11.1); MONO % 6.6 % (3.8-10.2); NEUT % 69.4 % (42.8-82.8); PLATELET COUNT 215 K/MM3 (134-434); RBC 4.34 M/mm3 (3.60-5.2); RDW 14.8 % (11.6-15.6)
[2018-06-13 10:08] VITALS: BP 125/70; PULSE 64; TEMP 98
[2018-06-13] MEDS: PANTOPRAZOLE SODIUM 40 MG VIAL IVPUSH SCH (10:09)
--- NOTE | 2018-06-13 10:33 | PN ---
Progress Note (short form) - Note Progress Note: Attending Surgeon POD #2 No c/o; tolerating diet VSS AF abdo-soft; port sites c/d/i; drain serous WBC 11.6; LFT's normal IMP: doing well PLAN: Drain removed; d/c to office f/u. Camilo Balderrama MD FACS
--- NOTE | 2018-06-13 11:55 | DS ---
Physical Examination Vital Signs: Vital Signs Temperature 36.7 C 06/13/18 10:00 Pulse Rate 64 06/13/18 10:00 Respiratory Rate 18 06/13/18 10:00 Blood Pressure 125/70 06/13/18 10:00 O2 Sat by Pulse Oximetry (%) 97 06/12/18 20:42 Labs: CBC, BMP 06/13/18 06:30 06/12/18 06:30 Discharge Summary Reason For Visit: CHOLECYSTITIS Current Active Problems Acute gangrenous cholecystitis (Acute) Condition: Good - Instructions Diet, Activity, Other Instructions: Dr. Balderrama Discharge Instructions Dear LINO ORTIZ, Post Operative Instructions Physical activity Resume your normal everyday activity as tolerated no heavy lifting or exercise until seen by your surgeon. You may walk unlimited amounts of and climb stairs. You may resume driving the car when you feel safe and comfortable behind the wheel. Wound care If you have a bandage, leave it on, and keep dry for 48 - 72 hours. After that time discard the outer bandage. If there are tapes on the skin under the outer bandage, leave them in place. They will peel off in the next 7 to 10 days. Do Not peel them off. You may shower 2 days after surgery. If there are tapes present on the skin, they can get wet. Diet There are no dietary restrictions. Eat healthy, high-fiber foods. Drink 6 to 8 glasses of liquid each day. This will assist in keeping your bowels are regular. Pain management You may take Tylenol or acetaminophen or Ibuprofen (for example, Motrin, Advil etc.) Any pain prescription medication ordered should be taken as prescribed for moderate to severe pain. Do not drive, drink alcohol or operate heavy machinery while taking narcotic pain medications. Call Dr. Balderrama for any of the following: Severe pain not relieved by medication Fever of 101 or higher Excessive bleeding or drainage on dressing Inability to urinate Call the office at [phone] for a post operative appointment in 7 - 10 days. Referrals: Kai Lopez MD [Primary Care Provider] - Disposition: HOME
--- NOTE | 2018-06-14 15:26 | PATH ---
Surgical Pathology Report Patient Name: LINO ORTIZ Med. Rec. #: [id number] /Age/Gender: 1965 (Age: 52) / F Account: [id number] Location: [address] [place] [address]/[facility] Taken: 06/11/2018 Received: 06/11/2018 Reported: 06/14/2018 Physicians: MD Miguel Bal M.D. Specimen(s) Received GALLBLADDER Clinical History Cholecystitis Final Diagnosis GALLBLADDER, LAPAROSCOPIC CHOLECYSTECTOMY: ACUTE AND CHRONIC CHOLECYSTITIS WITH CHOLELITHIASIS. Electronically Signed Elis Henderson M.D. Gross Description Received in formalin, labeled "gallbladder," is a 7.7 x 3.0 x 2.0 cm. gallbladder with a 0.2 cm. in length portion of cystic duct attached. The outer surface is byers-pink with multifocal defects and varies from smooth to shaggy. The lumen contains brown, sludgelike bile as well as 2 brown green, irregular choleliths measuring 1.1 and 2.4 cm in greatest dimension. The mucosa is hyperemic. The wall of the gallbladder ranges from 0.1-0.4 cm. in thickness. [employer] sections are submitted in one cassette. 06/11/201806/11/2018
== END 2018-06-13 13:04 | disposition home or self-care (01) | DRG 263 ==
LOC: JER 07:19 → JERBED 10:59 → J5S 15:08
PROVIDERS: ADMIT Internal Medicine; ATTEND Internal Medicine
PROC: 0FT44ZZ Resection of Gallbladder, Percutaneous Endoscopic Approach (ICD-10-PCS; principal; 2018-06-11 10:00)
DX: K80.01 Calculus of gallbladder with acute cholecystitis with obstruction (principal); K82.A1 Gangrene of gallbladder in cholecystitis; E66.9 Obesity, unspecified; Z68.27 Body mass index [BMI] 27.0-27.9, adult
CPT/HCPCS: 36415; 71045-TC-FY; 76705-TC; 80048; 80053; 80076; 81003; 83690; 83735; 84100; 84484; 84703; 85025; 85610; 88304-TC; 93005; 93010; 94760; 99282-25; J0131; J7030